=== PATIENT | male | born 1975 | race Caucasian/White ===

== ENCOUNTER 2019-02-23 10:05 | Observation (INO) | payer BC, OTHER ==
[2019-02-23 10:26] LABS: #Eosinphils 0.4 thou/uL (0.0-0.7); #Lymphocytes 2.7 thou/uL (1.20-3.40); #Monocytes 0.8 thou/uL (0.11-0.59); #Neutrophils 5.8 thou/uL (1.40-6.50); %Basophils 0.4 % (0.0-1.0); %Eosinophils 4.3 % (0.0-10.0); %Lymphocytes 27.8 % (21.0-51.0); %Monocytes 7.8 % (0.0-10.0); %Neutrophils 59.8 % (42.0-75.0); Hemoglobin 16.3 g/dL (14.0-18.0); Mean Corpuscular HGB CONC 33.5 g/dL (32.0-36.0); Mean Corpuscular Hemoglobin 31.1 pg (27.0-31.0); Mean Corpuscular Volume 92.7 fL (78.0-98.0); Platelet Count 222 thou/uL (130-400); RBC Distribution Width 11.4 % (11.5-14.5); Red Blood Cell (RBC) Count 5.25 mill/uL (4.70-6.10); White Blood Cell (WBC) Count 9.7 thou/uL (4.8-10.8)
[2019-02-23 10:52] LABS: ALT (SGPT) 69 U/L (8-55); AST (SGOT) 33 U/L (5-34); Albumin 4.5 g/dL (3.5-5.0); Alkaline Phosphatase 97 U/L (40-150); Anion Gap 13 mmol/L (10-20); BUN (Urea Nitrogen) 16 mg/dL (8.9-20.6); Bilirubin, Total 0.5 mg/dL (0.2-1.2); CK (CPK) 141 U/L (30-200); Calc. Creatinine Clearance 0 mL/min (70-130); Calcium 9.6 mg/dL (7.8-10.44); Carbon Dioxide 26 mmol/L (22-29); Chloride 103 mmol/L (98-107); Estimated GFR-MDRD 88; Globulin 3.4 g/dL (2.4-3.5); Glucose 115 mg/dL (70-105); Lipase 51 U/L (8-78); Potassium 4.2 mmol/L (3.5-5.1); Protein, Total 7.9 g/dL (6.0-8.3); Sodium 138 mmol/L (136-145)
--- NOTE | 2019-02-23 10:56 | RAD ---
XR Chest Pa Lat STANDARD History: Chest pain Comparison: None. Findings: Lungs are clear. No pneumothorax. No effusion. No acute osseous abnormality. Impression: No acute intrathoracic abnormality.
[2019-02-23] MEDS ORDERED: Ondansetron ODT 4 MG TAB PO PRN (11:28)
[2019-02-23] MEDS ORDERED: Acetaminophen 325 MG TAB PO PRN (11:28)
[2019-02-23] MEDS ORDERED: Ondansetron PF 4 MG/2 ML Vial IVP PRN (11:28)
[2019-02-23] MEDS ORDERED: Nitroglycerin 0.4 MG TAB (25 Tab Bottle) PO PRN (11:28)
[2019-02-23 12:44] VITALS: BMI 32.8
[2019-02-23 13:46] LABS: Troponin I Less than 0.010 ng/mL (< 0.028)
--- NOTE | 2019-02-23 14:08 | HP ---
PRIMARY CARE PHYSICIAN: None. CHIEF COMPLAINT: Midsternal chest pain. HISTORY OF PRESENT ILLNESS: Mr. Meyers is a 43-year-old man with no medical history, who had presented to [facility] earlier today after he experienced some midsternal chest pain that had radiated across his chest in a pressure-like fashion after he was riding a tractor earlier this morning. He states he was riding a tractor for about 3 hours prior to symptoms starting, he had also noticed some mild shortness of breath and some overall generalized weakness. He states that he drove himself to the ER, and by the time that he arrived, his chest pain resolved; however, still had some mild generalized weakness. He had received a liter of normal saline in the emergency department, and his initial workup included a portable chest x-ray, which was found to be normal. His initial troponin was found to be less than 0.010 with a normal BNP of 26.1. The patient denied any fever, chills, any headache, blurred vision, dizziness, any current chest pain, palpitations, shortness of breath, abdominal pain, nausea, vomiting, change in stool, or any swelling, numbness, tingling down his extremities. Serial troponins will be trended at this time and currently pending, and he will be resumed on telemetry, which shows normal sinus rhythm this far. REVIEW OF SYSTEMS: All other systems were reviewed and found to be negative unless mentioned in the HPI. PAST MEDICAL HISTORY: None. PAST SURGICAL HISTORY: Appendectomy. PSYCHIATRIC HISTORY: None. SOCIAL HISTORY: The patient drinks socially about 3 to 4 nights a week and smokes about a pack and half of cigarettes per day, but denies any illicit drug use. KNOWN ALLERGIES: Penicillins. CURRENT HOME MEDICATIONS: None. PHYSICAL EXAMINATION: VITAL SIGNS: BP 139/83, pulse 84, respirations 16, temperature 97.6 degrees Fahrenheit, O2 saturations 97% on room air. GENERAL: The patient is awake, alert, and oriented x3. He is currently lying comfortably in bed and in no acute distress. His family is at bedside. HEENT: Atraumatic, normocephalic. Pupils are round and reactive to light. Extraocular muscles intact. Moist mucous membranes noted. NECK: Soft and supple. Trachea midline. CARDIOVASCULAR: Positive S1 and S2. Regular rate and rhythm. No murmur auscultated. RESPIRATORY: Clear to auscultation bilaterally. No wheezes, rales, or rhonchi. ABDOMEN: Soft, nontender. Bowel sounds present. MUSCULOSKELETAL: Strength 5+ bilaterally in upper and lower extremities. Moves all extremities equal. Pedal and radial pulses 2+ bilaterally. No edema noted. NEUROLOGIC: Cranial nerves 2 through 12 grossly intact. No focal deficits noted. Speech intact and normal. Gait not assessed. SKIN: Warm, dry, and intact. No rashes. No ulceration noted. PSYCHIATRIC: Good mood and affect. LABORATORY DATA: WBC 9.7, RBC 5.25, hemoglobin 16.3, hematocrit 48.7, platelets 222. Sodium 138, potassium 4.2, anion gap 13, BUN 16, creatinine 0.93, estimated GFR 88, glucose 115. CK 141. Troponin less than 0.010. BNP 26.1. Lipase 51. DIAGNOSTIC IMAGING STUDIES: Chest PA and lateral, two-view chest x-ray showed no acute intrathoracic abnormality. ASSESSMENT/PLAN: 1. Midsternal chest pain and appears to be an atypical. Currently, asymptomatic at this time. Serial troponins are ordered and currently pending, so far negative x1. BNP was stable at 26.1. Stress test will be ordered and will likely take place in the a.m. 2. Deep venous thrombosis and gastrointestinal prophylaxis. 3. Nicotine abuse. The patient was recommended and educated on smoking cessation. 4. Code status. Full code. 5. Disposition. Pending further workup and clinical findings, the patient will likely be discharged home. If his cardiac workup is negative in the next 24 hours, he will be likely discharged home. Job ID: [id number]
[2019-02-23 17:02] LABS: Troponin I Less than 0.010 ng/mL (< 0.028)
[2019-02-23] MEDS: Famotidine 20 MG TAB PO SCH (21:13)
[2019-02-24 07:08] LABS: #Basophils 0.1 thou/uL (0.0-0.2); #Eosinphils 0.4 thou/uL (0.0-0.7); #Lymphocytes 2.3 thou/uL (1.20-3.40); #Monocytes 0.7 thou/uL (0.11-0.59); #Neutrophils 7.2 thou/uL (1.40-6.50); %Basophils 0.6 % (0.0-1.0); %Eosinophils 3.5 % (0.0-10.0); %Lymphocytes 21.7 % (21.0-51.0); %Neutrophils 67.2 % (42.0-75.0); Hemoglobin 14.5 g/dL (14.0-18.0); Mean Corpuscular HGB CONC 32.5 g/dL (32.0-36.0); Mean Corpuscular Hemoglobin 30.8 pg (27.0-31.0); Mean Corpuscular Volume 94.6 fL (78.0-98.0); Platelet Count 197 thou/uL (130-400); RBC Distribution Width 11.4 % (11.5-14.5); Red Blood Cell (RBC) Count 4.71 mill/uL (4.70-6.10); White Blood Cell (WBC) Count 10.7 thou/uL (4.8-10.8)
[2019-02-24 07:30] LABS: Anion Gap 9 mmol/L (10-20); BUN (Urea Nitrogen) 12 mg/dL (8.9-20.6); Calc. Creatinine Clearance 161 mL/min (70-130); Carbon Dioxide 26 mmol/L (22-29); Cardiac Risk 6.7 (Less than 4.5); Chloride 105 mmol/L (98-107); Cholesterol 200 mg/dl (< 200 Desired); Estimated GFR-MDRD Greater than 90; Glucose 97 mg/dL (70-105); HDL Cholesterol 30 mg/dL (>60 Neg Risk); LDL Cholesterol, Calculated 149 mg/dL; Potassium 4.1 mmol/L (3.5-5.1); Sodium 136 mmol/L (136-145); Triglycerides 107 mg/dL (Less than 150)
[2019-02-24] MEDS ORDERED: Aspirin 325 mg Enteric Coated Tablet PO SCH (09:00)
[2019-02-24] MEDS ORDERED: Enoxaparin Sodium 40 MG/0.4 ML SYRINGE SC SCH (09:00)
[2019-02-24] MEDS: Famotidine 20 MG TAB PO SCH (11:44)
[2019-02-24 11:55] VITALS: BP 124/71; TEMP 97.6
--- NOTE | 2019-02-24 12:22 | NM ---
CARDIAC SPECT: CLINICAL HISTORY: 43-year-old male with chest pain. TECHNIQUE: A myocardial perfusion scan was performed using the single isotope two day protocol with 30 mCi techn etium-99m sestamibi injected intravenously for both stress and rest images. Pharmacologic stress with Adenosine was monitored and interpreted by Dr. Armendariz. FINDINGS: Homogeneous tracer distribution is seen in the myocardial segments on stress and rest images without fixed or reversible defects. GATED SPECT LVEF: 56%. WALL MOTION EXAM: Normal. IMPRESSION: Normal myocardial perfusion scan. POS: OFF
[2019-02-24] MEDS ORDERED: ADENOSINE 60 MG/20 ML VIAL ONE (15:28)
--- NOTE | 2019-02-24 22:22 | DIS ---
DATE OF ADMISSION: 02/23/2019 DATE OF DISCHARGE: 02/24/2019 FINAL DIAGNOSES: Chest pain, most likely related to his GI problems. He has a gastric reflux for several years. HOSPITAL COURSE: The patient was a 43-year-old male with no medical history, who presented to [facility] Room with complaints of midsternal chest pain which was radiating across his chest. It was a pressure-like fashion discomfort after he was riding a tractor earlier yesterday morning. The pain subsided, then it came back. He decided to come to the emergency room for further evaluation. His portable chest x-ray was normal. Troponin was 0.01. BNP was 26.1. His white count was 9.7, hemoglobin 16.3. CK 141. Troponin was as I mentioned above 0.010. Lipase 51. Chest x-ray did not show any acute abnormalities. The patient got admitted to the hospital, had additional 2 sets of troponins which came back negative. EKG was done and it did not show any ischemic changes. It was normal sinus rhythm. He underwent stress test with nuclear medicine which showed LVEF estimated at 56%, wall motion normal, and impression was normal myocardial perfusion scan. I asked him to try some Prilosec [id number] for his heartburn and to check with his primary care physician in 1 week for followup, since he did not have any scoping done and his heartburn was going on for several years, he might be a candidate for EGD by GI. The patient was seen and examined before he is discharged. He will stay on heart healthy diet and activities as tolerated. Job ID: [id number]
[2019-02-25] MEDS ORDERED: Aspirin 81 mg Enteric Coated Tablet PO SCH (09:00)
== END 2019-02-24 15:33 | disposition home or self-care (01) ==
LOC: ERS 10:05 → 2SW 11:34
PROVIDERS: ADMIT Family Medicine; ATTEND Family Medicine
DX: R07.2 Precordial pain (principal); F17.210 Nicotine dependence, cigarettes, uncomplicated; K21.9 Gastro-esophageal reflux disease without esophagitis; Z88.0 Allergy status to penicillin
CPT/HCPCS: 36415; 71046; 78452; 80048; 80053; 80061; 82550; 83690; 83880; 84443; 84484; 85025; 85379; 93005; 93017; 94640; 94760; 96360; 96372; A9500; G0378; J0153; J1650; J7620